=== PATIENT | female | born 1980 | race Caucasian/White ===

== ENCOUNTER 2025-03-11 18:59 | Emergency (ER) | payer BC ==
[2025-03-11] MEDS: Ketorolac 30 MG/ML SDV IM ONE (19:57)
== END 2025-03-11 20:05 | disposition home or self-care (01) ==
LOC: FB.ED 18:59
DX: T74.11XA Adult physical abuse, confirmed, initial encounter (principal); S10.93XA Contusion of unspecified part of neck, initial encounter; Z88.2 Allergy status to sulfonamides; Z79.899 Other long term (current) drug therapy; Y04.8XXA Assault by other bodily force, initial encounter
CPT/HCPCS: 96372; 99283; J1885